=== PATIENT | female | born 1940 | race Caucasian/White ===

== ENCOUNTER 2020-05-15 09:02 | Outpatient (RCR) | payer MEDICARE, SELFPAY | END 2020-05-15 23:59 | LOC: IMMUN 09:02 | PROVIDERS: PCP Family Medicine; Visit Provider Family Medicine | DX: Z23 Encounter for immunization (principal) | CPT/HCPCS: 0011A; 0012A; 91301 ==

== ENCOUNTER → 2024-04-02 | Outpatient (REF) | payer MEDICARE, SELFPAY ==
[2024-04-02 08:20] LABS: INR Fingerstick 2.4; Prothrombin Time Fingerstick 25.6 SEC (11.7-14.9)
== END ==
LOC: OLS.SANC 05:00
PROVIDERS: PCP Family Medicine; Visit Provider Internal Medicine
DX: I48.91 Unspecified atrial fibrillation (principal); D64.9 Anemia, unspecified; E11.9 Type 2 diabetes mellitus without complications; I10 Essential (primary) hypertension; E78.5 Hyperlipidemia, unspecified; E03.9 Hypothyroidism, unspecified
CPT/HCPCS: 36416; 85610

== ENCOUNTER → 2024-04-05 | Outpatient (REF) | payer MEDICARE, SELFPAY ==
[2024-04-05 08:27] LABS: International Normalized Ratio 3.8; Prothrombin Time (Protime)PT. 37.3 SECONDS (11.7-14.9)
[2024-04-05 09:01] LABS: INR Fingerstick 4.3; Prothrombin Time Fingerstick 42.5 SEC (11.7-14.9)
== END ==
LOC: OLS.SANC 04:00
PROVIDERS: PCP Family Medicine
DX: E11.9 Type 2 diabetes mellitus without complications (principal); E78.5 Hyperlipidemia, unspecified; Z79.01 Long term (current) use of anticoagulants
CPT/HCPCS: 36415; 36416; 85610

== ENCOUNTER → 2024-04-06 | Outpatient (REF) | payer MEDICARE, SELFPAY ==
[2024-04-06 08:24] LABS: International Normalized Ratio 4.9; Prothrombin Time (Protime)PT. 44.9 SECONDS (11.7-14.9)
== END ==
LOC: OLS.SANC 05:00
PROVIDERS: PCP Family Medicine; Visit Provider Internal Medicine
DX: E11.9 Type 2 diabetes mellitus without complications (principal); E78.5 Hyperlipidemia, unspecified; Z79.01 Long term (current) use of anticoagulants
CPT/HCPCS: 36415; 85610